=== PATIENT | female | born 1980 | race Caucasian/White ===

== ENCOUNTER 2018-11-07 16:38 | Emergency (ER) | payer BC ==
[~2018-11-07] VITALS: Ht 172.7 cm; Wt 84.1 kg
[2018-11-07] MEDS ORDERED: PEPT262T2 PO (16:44)
[2018-11-07] MEDS ORDERED: NS 1,000 ML IV ONE (17:15)
[2018-11-07] MEDS ORDERED: METOCLOPRAMIDE INJ 10MG/2ML VIAL (J2765) IV ONE (17:15)
[2018-11-07] MEDS ORDERED: KETOROLAC 30 MG/ML VIAL (J1885) IV ONE (17:45)
[2018-11-07 18:15] VITALS: BP 115/73
[2018-11-07 18:29] LABS: BASO % 0.1 % (0.0-1.0); EOS # 0.1 10^3/uL (0.0-0.50); EOS % 0.7 % (0.0-3.0); HEMATOCRIT 37.3 % (36.0-47.0); HEMOGLOBIN 12.7 g/dl (12.0-15.5); LYMPH # 0.7 10^3/uL (1.5-4.5); LYMPH % 6.5 % (24.0-44.0); MEAN CORPUSCULAR HEMOGLOBIN 27.4 pg (27.0-33.0); MEAN CORPUSCULAR VOLUME 80.6 fl (80.0-96.0); MONO # 0.3 10^3/uL (0.0-0.8); NEUTROPHILS # 9.5 10^3/uL (1.8-7.7); NEUTROPHILS % 89.4 % (36.0-66.0); PLATELET COUNT, AUTOMATED 162 10^3/uL (150-450); RED BLOOD COUNT 4.63 10^6/uL (4.00-5.40); WHITE BLOOD COUNT 10.7 10^3/uL (4.0-10.0)
[2018-11-07 19:00] LABS: ALBUMIN 3.8 GM/DL (3.2-5.2); ALT/SGPT 10 U/L (12-78); BILIRUBIN,DIRECT 0.2 MG/DL (0.0-0.2); BILIRUBIN,TOTAL 0.9 MG/DL (0.2-1.0); BLOOD UREA NITROGEN 24 MG/DL (7-18); CALCIUM LEVEL 8.4 MG/DL (8.5-10.1); CARBON DIOXIDE LEVEL 18 MEQ/L (21-32); CHLORIDE LEVEL 111 MEQ/L (98-107); CPK CREATINE PHOSPHOKINASE 147 U/L (26-192); CREATININE FOR GFR 0.84 MG/DL (0.55-1.30); GLOMERULAR FILTRATION RATE > 60.0 (>58); GLUCOSE, FASTING 89 MG/DL (70-100); MB/CK RELATIVE INDEX 0.88 (< OR =4); POTASSIUM SERUM 4.2 MEQ/L (3.5-5.1); SODIUM LEVEL 141 MEQ/L (136-145); TROPONIN I < 0.02 NG/ML (< 0.10)
--- NOTE | 2018-11-07 19:29 | ECGEPIP ---
Stationary ECG Study [facility] - ED Test Date: 2018-11-07 Pat Name: IDALIA ZULUAGA Department: Room: - Gender: F Respiratory Assistant: saji : 1980 Requested By: CAROLYN LOVING PA-C. Order Number: [id number] Reading MD: Liz Salazar Measurements Intervals [place] Rate: 91 P: 76 LA: 154 QRS: 70 QRSD: 74 T: 71 QT: 322 QTc: 397 Interpretive Statements SINUS RHYTHM NONSPECIFIC ST T WAVE CHANGES NO OLD ECG FOR COMPARISON Electronically Signed On 11-07-2018 19:29:06 EST by Liz Salazar
[2018-11-07] MEDS ORDERED: ACETAMINOPHEN 325 MG TAB PO ONE (19:45)
[2018-11-07] MEDS ORDERED: IBUP-1022 PO (20:06)
[2018-11-07] MEDS ORDERED: ONDA4TAB6 PO (20:06)
--- NOTE | 2018-11-09 07:40 | REP ---
Clinical: Syncope and head trauma. Comparison: none. Findings: The ventricles, sulci, and cisterns are normal in position and appearance. Seals-white differentiation is maintained. No acute intracranial hemorrhage, mass/mass effect, pathology or trauma/injury. No evidence for acute infarction. No extra-axial fluid collection. Calvarium is intact. Paranasal sinuses and mastoid air cells are clear. Impression: Normal noncontrast head CT. No evidence for acute intracranial pathology or trauma/injury. Electronically Signed by Agustín Ma MD 11/07/2018 05:20 P
== END 2018-11-07 20:34 | disposition home or self-care (01) ==
LOC: M ED 16:38
DX: R11.2 Nausea with vomiting, unspecified (principal); R19.7 Diarrhea, unspecified; G43.909 Migraine, unspecified, not intractable, without status migrainosus; R55 Syncope and collapse; E06.3 Autoimmune thyroiditis
CPT/HCPCS: 70450; 80048; 80076; 82550; 82553; 84443; 84484; 85025; 93005; 96361; 96374; 96375; 99284; J1885; J2765

== ENCOUNTER 2019-04-17 16:48 | Emergency (ER) | payer BC ==
[~2019-04-17] VITALS: Ht 172.7 cm; Wt 84.1 kg
[~2019-04-17 16:48] MED LIST: IBUP-1022 PO; ONDA4TAB6 PO; PEPT262T2 PO
[2019-04-17] MEDS ORDERED: LIDOCAINE 2% MDV 20 ML VIAL SC ONE (17:30)
[2019-04-17 17:56] VITALS: BP 130/83
== END 2019-04-17 18:00 | disposition home or self-care (01) ==
LOC: M ED 16:48
DX: S61.216A Laceration without foreign body of right little finger without damage to nail, initial encounter (principal); W25.XXXA Contact with sharp glass, initial encounter; Y92.018 Other place in single-family (private) house as the place of occurrence of the external cause; E06.3 Autoimmune thyroiditis